=== PATIENT | male | born 1965 | race Caucasian/White ===

== ENCOUNTER 2020-07-06 16:03 | Inpatient (IN) | payer BC ==
[2020-07-06] MEDS ORDERED: SODIUM CHLORIDE 0.9% 1,000 ML IV ONE (17:00)
[2020-07-06] MEDS ORDERED: VERAPAMIL 2.5 MG/ML 2 ML AMP ONE (17:13)
[2020-07-06] MEDS ORDERED: MIDAZOLAM 2 MG/2 ML VIAL IV ONE (17:17)
[2020-07-06] MEDS ORDERED: LIDOCAINE 1% INJ 10MG/ML (20 ML MDV) SQ ONE (17:19)
[2020-07-06] MEDS ORDERED: VERAPAMIL SYRINGE (5 MG/10 ML) INTRAARTER ONE (17:21)
[2020-07-06] MEDS ORDERED: BIVALIRUDIN BOLUS 250 MG/50 ML IV ONE (17:30)
[2020-07-06] MEDS ORDERED: BIVALIRUDIN 250 MG in SODIUM CHLORIDE 0.9% 50 ML IV ONE (17:31)
[2020-07-06] MEDS ORDERED: HYDROmorphone 1 MG/ML 1 ML SYRINGE ONE (17:32)
[2020-07-06] MEDS ORDERED: niCARdipine 25 MG/10 ML VIAL ONE (17:33)
[2020-07-06] MEDS ORDERED: HYDROmorphone 1 MG/ML 1 ML SYRINGE IVP ONE (17:35)
[2020-07-06] MEDS: NITROGLYCERIN 1000MCG/10ML SYRINGE INTRACORON ONE ×2 (17:38→17:44)
[2020-07-06] MEDS ORDERED: PRASUGREL 10 MG TAB ONE ×2 (17:41)
[2020-07-06] MEDS ORDERED: PRASUGREL 10 MG TAB PO ONE (17:44)
[2020-07-06] MEDS ORDERED: IOPAMIDOL-370 125ML BTL INJ ONE (17:46)
[2020-07-06] MEDS ORDERED: RX INFO: IV CONTRAST WAS GIVEN 1 EACH MISC MISCELLANE PRN (17:57)
[2020-07-06] MEDS ORDERED: MAG HYDROX/AL HYDROX/SIMETH 30 ML CUP PO PRN (17:57)
[2020-07-06] MEDS ORDERED: ATROPINE SULFATE 0.1 MG/ML 10ML SYRINGE IV PRN (17:57)
[2020-07-06] MEDS ORDERED: NITROGLYCERIN SL TABS 0.4 MG TAB SUBLINGUAL PRN (17:57)
[2020-07-06] MEDS ORDERED: ZOLPIDEM 5 MG TAB PO PRN (17:57)
[2020-07-06] MEDS ORDERED: SODIUM CHLORIDE 0.9% 1,000 ML IV SCH (18:00)
--- NOTE | 2020-07-06 18:01 | P.CRDCN ---
History of Present Illness Consult date: 07/06/20 Chief complaint: Chest pain History of present illness: This is a very pleasant 55-year-old gentleman was no significant past medical history of diabetes or hypertension or dyslipidemia presented to the emergency department at [facility] complaining of chest discomfort. The patient has been experiencing intermittent episodes of chest pressure/chest discomfort for the last 3 days. He described it as somebody sitting on the chest. No radiation to the arms or neck or shoulders. No associated symptoms of shortness of breath or sweating or dizziness or syncope. Initial troponin came in to be slightly abnormal but the subsequent troponin came in to be worse. The EKG showed sinus rhythm with ST changes in the anteroseptal leads concerning for severe underlying coronary artery disease. Because of that an emergent heart catheterization was advised. The patient underwent today an emergent heart catheterization that revealed critical disease involving the proximal LAD with a lesion appeared to be in the range of 99.9% and seems to be hazy looking with a thrombus components. He underwent successful stenting of the LAD using a drug- eluting stent with an excellent angiographic results and without any elevation the procedure was performed from the right radial approach. The patient is going to be admitted to the selective units. He will be on dual antiplatelet therapy along with high density statin along with anti-ischemic medications. An echocardiogram would be obtained to obtain a baseline left ventricular systolic function. Past Medical History Past Medical History: GERD/Reflux, Osteoarthritis (OA) Additional Past Medical History / Comment(s): VARICOSE VEINS,IRREGULAR HEART BEAT,IMPLANTS LEFT KNEE, CADAVER TENDON X3, NUMBNESS AND TINGLING RT. ARM History of Any Multi-Drug Resistant Organisms: None Reported Past Surgical History: Orthopedic Surgery, Tonsillectomy Additional Past Surgical History / Comment(s): CYST REMOVED FROM CHEST-FATTY TUMOR REMOVED FROM BACK, PLASTIC SURG. FOR ORBITAL DAMAGE, SCARRED ESOPHAGUS, COLONSCOPY,EGD 9 KNEE SURGERIES, LEFT ACHILLES, Past Anesthesia/Blood Transfusion Reactions: No Reported Reaction Additional Past Anesthesia/Blood Transfusion Reaction / Comment(s): WAKES UP IN THE MIDDLE IN PAST Past Psychological History: No Psychological Hx Reported Past Alcohol Use History: Rare Past Drug Use History: None Reported Medications and Allergies Home Medications Medication Instructions Recorded Confirmed Type Celecoxib [CeleBREX] 200 mg PO DAILY 04/04/14 06/27/14 History Esomeprazole Magnesium [NexIUM] 40 mg PO DAILY 04/04/14 06/27/14 History HYDROcodone/APAP 10-325MG [[place] 1 tab PO QID PRN 04/04/14 06/27/14 History 10-325] carisoprodoL [Soma] 350 mg PO DAILY PRN 04/04/14 06/27/14 History Allergies Allergy/AdvReac Type Severity Reaction Status Date / Time No Known Allergies Allergy Verified 06/27/14 14:31 Physical Exam Vitals: Intake and Output 07/06/20 07/06/20 07/06/20 06:59 14:59 22:59 Intake Total 275 Balance 275 Intake: IV 275 Other: Weight 96.3 kg - Constitutional General appearance: no acute distress - Respiratory Respiratory: bilateral: CTA - Cardiovascular Rhythm: regular Heart sounds: normal: S1, S2 Abnormal Heart Sounds: systolic murmur Results Intake and Output 07/06/20 07/06/20 07/06/20 06:59 14:59 22:59 Intake Total 275 Balance 275 Intake: IV 275 Other: Weight 96.3 kg Patient Weight 07/07/20 06:59 Weight 96.3 kg Assessment and Plan Assessment: Assessment #1 acute coronary event #2 status post PCI of the LAD Plan #1 dual antiplatelet therapy along with high-intensity statin #2 an echocardiogram to establish LV function #3 fasting lipid profile #4 anti-ischemic medication #5 follow-up with the patient
[2020-07-06 19:32] VITALS: RESP 18
[2020-07-06] MEDS: METOPROLOL TARTRATE 12.5 MG TAB PO SCH (19:38)
--- NOTE | 2020-07-06 20:44 | CC ---
CARDIAC CATHETERIZATION REPORT DATE OF SERVICE: 07/06/2020 PERFORMING PHYSICIAN: Ervin Deras M.D. PROCEDURE PERFORMED: 1. Selective right and left coronary angiogram. 2. Left heart catheterization. 3. Successful stenting of the proximal left anterior descending artery using a 3.5 x 12 mm Xience ZAHRAA with an excellent angiographic result and reduction of stenosis from 99% to 0% and without any complication. INDICATION: This is a 55-year-old gentleman with no significant past medical history who presented to the emergency department at [facility] with chest discomfort. He was found to have mildly abnormal troponin and also EKG concerning for severe underlying coronary artery disease. Because of that a heart catheterization was advised. APPROACH: Right radial artery. COMPLICATIONS: None. LEVEL OF SEDATION: Moderate, with sedation length of 30 minutes. PROCEDURE DESCRIPTION: After obtaining informed consent, the patient was brought to the cardiac blood bank laboratory technologist. The right radial artery was cannulated using micropuncture technique. The micropuncture wire passed easily. Then I placed a 6-Comoran sheath at the right radial artery. At that point I gave the patient 2 mg of verapamil IA. Selective right and left coronary angiogram was performed using JR4 and JL3.5 catheters. Left heart catheterization was performed using the JR4 catheter, which crossed the aortic valve. Then I did pull back across the valve. After that I did intervene on the LAD. Please see separate paragraph for that. SELECTIVE CORONARY ANGIOGRAM: 1. The RCA is a large-caliber vessel and is a dominant vessel. The RCA has mild disease only. It distally bifurcates into PDA and PLV branches. Both appeared to have mild disease only. 2. The left main is angiographically normal. It furcates into LCX and ramus intermedius and left anterior descending artery. 3. The left circumflex is a large-caliber vessel. It is a codominant vessel. The LCX is angiographically normal. 4. The ramus intermedius is a large-caliber vessel and seems to be also angiographically normal. 5. The LAD. The proximal LAD just proximal to the bifurcation of the large diagonal branch has a lesion that appeared to be in the range of 99.9%. The LAD in the mid and distal portions appeared to be angiographically normal. 6. HEMODYNAMICS: The LVEDP was 10 to 12 mmHg without significant gradient across the aortic valve. PERCUTANEOUS CORONARY INTERVENTION OF THE LEFT ANTERIOR DESCENDING CORONARY ARTERY: Anticoagulation was initiated using Angiomax. Subsequently I did engage the left main using a JL3 guide. I did wire the LAD using a run-through wire. Initially I tried to wire the LAD using a Whisper wire, but the wire was going to the diagonal, so I left the wire there. I did direct stenting of the lesion using a 3.5 x 12 mm Xience drug- eluting stent where the stent was positioned under fluoroscopic guidance and deployed under fluoroscopic guidance under 12 atmospheres for 20 seconds. The following angiogram showed excellent angiographic results and the procedure was completed without any complication. CONCLUSION: 1. Acute [id number] myocardial infarction in this 55-year-old gentleman with no prior cardiac history. 2. Critical disease involving the proximal left anterior descending artery. 3. Successful stenting of the proximal LAD using a 3.5 x 12 mm Xience ZAHRAA with an excellent angiographic result and without any complication. POST-PROCEDURE MANAGEMENT: 1. Dual anti-platelet therapy. 2. Risk factor modifications. 3. Echocardiogram with Doppler. 4. Follow up with the patient. MMODL / IJN: [id number] /
[2020-07-06] MEDS ORDERED: ATORVASTATIN 80 MG TAB PO SCH (21:00)
[2020-07-06] MEDS ORDERED: ALPRAZolam 0.5 MG TAB PO SCH (21:00)
--- NOTE | 2020-07-06 23:14 | LTR ---
July 06, 2020 To: Dr. Mancera Re: Oliver Mayo (67) Dear Dr. Mancera, Mr. Oliver Mayo underwent heart catheterization that revealed critical disease involving the proximal left anterior descending artery. He underwent successful stenting of the LAD with a drug-eluting stent, with excellent angiographic results. Thank you for allowing us to participate in his care. Please do not hesitate to call with any question or concern. Sincerely, Ervin Deras M.D. SALVADOR / EMERY: [id number] /
[2020-07-07 07:12] LABS: Basophils % (A) 1 %; Eosinophils # (A) 0.1 k/uL (0-0.7); Eosinophils % (A) 1 %; HCT 53.4 % (39.0-53.0); HGB 17.7 gm/dL (13.0-17.5); Lymphocytes # (A) 0.9 k/uL (1.0-4.8); Lymphocytes % (A) 13 %; MCH 31.1 pg (25.0-35.0); MCHC 33.1 g/dL (31.0-37.0); Mean Platelet Volume 8.1; Monocytes # (A) 0.6 k/uL (0-1.0); Monocytes % (A) 8 %; Neutrophils # (A) 5.1 k/uL (1.3-7.7); Neutrophils % (A) 74 %; Platelet Count 194 k/uL (150-450); RBC 5.68 m/uL (4.30-5.90); RDW 12.2 % (11.5-15.5); WBC 6.9 k/uL (3.8-10.6)
[2020-07-07 07:16] LABS: African American GFR (CKD) >90 (>60 ml/min/1.73 sqM); Anion Gap 5 mmol/L; Blood Urea Nitrogen 11 mg/dL (9-20); Calcium 9.1 mg/dL (8.4-10.2); Carbon Dioxide 27 mmol/L (22-30); Chloride 106 mmol/L (98-107); Cholesterol 144 mg/dL (<200); Glucose 80 mg/dL (74-99); HDL Cholesterol 26 mg/dL (40-60); LDL Cholesterol,Calculated 101 mg/dL (0-99); Magnesium 1.8 mg/dL (1.6-2.3); Non-African American GFR(CKD) 81 (>60 ml/min/1.73 sqM); Potassium 4.6 mmol/L (3.5-5.1); Sodium 138 mmol/L (137-145); Triglycerides 85 mg/dL (<150)
[2020-07-07] MEDS ORDERED: ASPIRIN 81 MG PO SCH (09:00)
[2020-07-07] MEDS ORDERED: ASPIRIN 325 MG TAB PO SCH (09:00)
[2020-07-07] MEDS: METOPROLOL TARTRATE 12.5 MG TAB PO SCH (09:44)
--- NOTE | 2020-07-07 10:46 | P.PN ---
Subjective Progress Note Date: 07/07/20 CHIEF COMPLAINT: Chest pain HISTORY OF PRESENT ILLNESS: 55-year-old male who is status post cardiac catheterization with drug eluting stent placement to the LAD with Dr. Deras. Patient examined this morning at the bedside. Patient reports having an episode of chest pain after his cardiac cath that resolved spontaneously. He currently denies chest pain. He denies shortness of breath. Vital signs stable. He is anxious to be discharged home today. PHYSICAL EXAM: VITAL SIGNS: Reviewed. GENERAL: Well-developed in no acute distress. NECK: Supple. No JVD or thyromegaly LUNGS: Respirations even and unlabored. Lungs essentially clear to auscultation bilaterally. HEART: Regular rate and rhythm. S1 and S2 heard. Systolic murmur. EXTREMITIES: Normal range of motion. No clubbing or cyanosis. Peripheral pulses intact. No lower extremity edema. Right radial site clean and dry. Pulses present. ASSESSMENT: 1. Acute coronary event, status post stenting to the LAD PLAN: -Decrease aspirin to 81 mg daily -Continue additional current cardiac medications including Lipitor, lisinopril, Lopressor, and Effient -Echocardiogram ordered to assess baseline LV function. Await results -Anticipate discharge home this evening or tomorrow Nurse practitioner note has been reviewed by physician. Signing provider agrees with the documented findings, assessment, and plan of care. Objective - Vital Signs Vital signs: Vital Signs Temp 98.5 F 07/07/20 04:00 Pulse 70 07/07/20 04:00 Resp 18 07/07/20 04:00 BP 115/72 07/07/20 04:00 Pulse Ox 96 07/07/20 04:00 Intake & Output 07/06/20 07/07/20 07/07/20 18:59 06:59 18:59 Intake Total 325 Balance 325 Weight 96.3 kg 98.3 kg Intake: IV 275 Intake, IV Titration 50 Amount Sodium Chloride 0.9% 1, 50 000 ml @ 0 mls/hr IV [email or web address] ONE Rx#:[id number] Other: Voiding Method Toilet # Voids 2 - Labs CBC & Chem 7: 07/07/20 06:11 07/07/20 06:11 Labs: Abnormal Lab Results - Last 24 Hours (Table) 07/07/20 07/07/20 Range/Units 06:11 06:11 Hgb 17.7 H (13.0-17.5) gm/dL Hct 53.4 H (39.0-53.0) % Lymphocytes # 0.9 L (1.0-4.8) k/uL LDL Cholesterol, Calc 101 H (0-99) mg/dL HDL Cholesterol 26 L (40-60) mg/dL
[2020-07-07 11:09] VITALS: BMI 30.2
[2020-07-07 11:44] VITALS: TEMP 98.7
--- NOTE | 2020-07-07 11:49 | P.HPIM ---
History of Present Illness H&P Date: 07/07/20 Chief Complaint: Chest pain HISTORY AND PHYSICAL AND DISCHARGE SUMMARY: HISTORY OF PRESENT ILLNESS This is a 55-year-old male patient of Dr. Mancera with past medical history of gastroesophageal reflux disease, heavy caffeine use, testosterone use, polycythemia. Patient presented to [facility] with chest pain that was a pressure type discomfort for about 3 days and described it as somebody sitting on his chest. There was no radiation. No shortness of breath, sweating, lightheadedness, dizziness, syncope. Initial troponin came back abnormal and subsequent or higher. EKG was a sinus rhythm with ST changes in the anterior septal leads concerning for severe underlying coronary artery disease. Echocardiogram revealed no abnormality and wall motion and normal EF, no pericardial effusion. CT of the chest showed no pulmonary embolism. He was diagnosed with non-ST elevated myocardial infarction and underwent emergent heart catheterization that revealed critical disease involving the proximal LAD with a lesion of 99.9%. He was transferred to [facility] for urgent stenting of the LAD. He is now on the cardiac stepdown unit. Patient has been started on aspirin, statin, lisinopril, Lopressor and Effient. Lab work this morning reveals WBC 6.9, hemoglobin 17.7, platelet count 194. Daphnie ctrolytes and renal function within normal limits. Magnesium 1.8. Triglycerides 85, cholesterol 144, LDL 101, HDL 26. Echocardiogram reveals EF of 45-50% with mild concentric left ventricular hypertrophy, mild mitral regurgitation, mild tricuspid regurgitation. Patient has been seen by cardiolog y and cleared for discharge. Patient denies having any chest pain, shortness of breath, lightheadedness or dizziness. REVIEW OF SYSTEMS At time of evaluation Constitutional: No fever, no chills, no night sweats. No weight change. No weakness, fatigue or lethargy. No daytime sleepiness. EENT: No headache. No blurred vision or double vision, no loss of vision. No loss of Hearing, no ringing in the ears, no dizziness. No nasal drainage or congestion. No epistaxis. No sore throat. Lungs: No shortness of breath, cough, no sputum production. No wheezing. Cardiovascular: No chest pain, no lower extremity edema. No palpitations. No paroxysmal nocturnal dyspnea. No orthopnea. No lightheadedness or dizziness. No syncopal episodes. Abdominal: No abdominal pain. No nausea, vomiting. No diarrhea. No constipation. No bloody or tarry stools.. No loss of appetite. Genitourinary: No dysuria, increased frequency, urgency. No urinary retention. Musculoskeletal: No myalgias. No muscle weakness, no gait dysfunction, no frequent falls. No back pain. No neck pain. Integumentary: No wounds, no lesions. No rash or pruritus. No unusual bruising. No change in hair or nails. Neurologic: No aphasia. No facial droop. No change in mentation. No head injury. No headache. No paralysis. No paresthesia. Psychiatric: No depression. No anxiety. No mood swings. Endocrine: No abnormal blood sugars. No weight change. No excessive sweating or thirst. No cold intolerance. SOCIAL HISTORY Patient is a nonsmoker and rarely drinks alcohol. He is and lives at home with his . FAMILY HISTORY Mother is alive at age 77 with history of morbid obesity and father is alive at the same age as well as morbid obesity. Reyez share medical problems. Patient has one brother with hypertension and other medical problems. He does not have any sisters. He has living children with no major medical problems. PHYSICAL EXAMINATION Gen: This is a 55-year-old male patient resting in bed and appears to be comfortable and in no acute distress. HEENT: Head is atraumatic, normocephalic. Pupils equal, round. Sclerae is anicteric. NECK: Supple. No JVD. No lymphadenopathy. No thyromegaly. LUNGS: Clear to auscultation. No wheezes or rhonchi. No intercostal retractions. HEART: Regular rate and rhythm. Systolic murmur. ABDOMEN: Soft. Bowel sounds are present. No masses. No tenderness. EXTREMITIES: No pedal edema. No calf tenderness. NEUROLOGICAL: Patient is awake, alert and oriented x3. Cranial nerves 2 through 12 are grossly intact. ASSESSMENT AND PLAN 1. Non-ST elevated myocardial infarction status post PCI of the LAD. Continue aspirin, Lipitor, lisinopril, Lopressor and Effient. Cardiology consult appreciated. 2. Insomnia. 3. Polycythemia. 4. Dyslipidemia. Patient will be admitted to the hospital for a minimum of 2 night stay. Discharge plan: home Discharge Medication List Esomeprazole Magnesium [NexIUM] 40 mg PO DAILY 04/04/14 [History] ALPRAZolam [Xanax] 1.5 mg PO HS 07/06/20 [History] Multivitamins, Thera [Multivitamin (formulary)] 1 tab PO DAILY 07/06/20 [History] Testosterone Cypionate [Depo-Testosterone] 200 mg IM Q28D 07/06/20 [History] Zinc 50 mg PO DAILY 07/06/20 [History] oxyCODONE-APAP 10-325MG [Percocet 10-325 mg] 1 tab PO TID PRN 07/06/20 [History] tadalafiL [Tadalafil] 20 mg PO DAILY PRN 07/06/20 [History] Aspirin 81 mg PO DAILY #30 chew 07/07/20 [Rx] Atorvastatin [Lipitor] 80 mg PO HS #30 tab 07/07/20 [Rx] Metoprolol Tartrate [Lopressor] 12.5 mg PO BID #60 tab 07/07/20 [Rx] Nitroglycerin Sl Tabs [Nitrostat] 0.4 mg SUBLINGUAL Q5M PRN #30 tab 07/07/20 [Rx ] Prasugrel [Effient] 10 mg PO DAILY #30 tab 07/07/20 [Rx] lisinopriL [Zestril] 2.5 mg PO DAILY #30 tab 07/07/20 [Rx] Impression and plan of care have been directed as dictated by the signing physician. Christelle Cabello nurse practitioner acting as scribe for signing physician. Past Medical History Past Medical History: GERD/Reflux, Osteoarthritis (OA) Additional Past Medical History / Comment(s): VARICOSE VEINS,IRREGULAR HEART BEAT,IMPLANTS LEFT KNEE, CADAVER TENDON X3, NUMBNESS AND TINGLING RT. ARM History of Any Multi-Drug Resistant Organisms: None Reported Past Surgical History: Orthopedic Surgery, Tonsillectomy Additional Past Surgical History / Comment(s): CYST REMOVED FROM CHEST-FATTY TUMOR REMOVED FROM BACK, PLASTIC SURG. FOR ORBITAL DAMAGE, SCARRED ESOPHAGUS, COLONSCOPY,EGD 9 KNEE SURGERIES, LEFT ACHILLES, Past Anesthesia/Blood Transfusion Reactions: No Reported Reaction Additional Past Anesthesia/Blood Transfusion Reaction / Comment(s): WAKES UP IN THE MIDDLE IN PAST Past Psychological History: No Psychological Hx Reported Past Alcohol Use History: Rare Past Drug Use History: None Reported - Past Family History Father Family Medical History: Hyperlipidemia, Hypertension, Rheumatoid Arthritis (RA) Mother Family Medical History: Eye Disorder, Hypertension, Rheumatoid Arthritis (RA) Medications and Allergies Home Medications Medication Instructions Recorded Confirmed Type Esomeprazole Magnesium [NexIUM] 40 mg PO DAILY 04/04/14 07/06/20 History ALPRAZolam [Xanax] 1.5 mg PO HS 07/06/20 07/06/20 History Multivitamins, Thera [Multivitamin 1 tab PO DAILY 07/06/20 07/06/20 History (formulary)] Testosterone Cypionate 200 mg IM Q28D 07/06/20 07/06/20 History [Depo-Testosterone] Zinc 50 mg PO DAILY 07/06/20 07/06/20 History oxyCODONE-APAP 10-325MG [Percocet 1 tab PO TID PRN 07/06/20 07/06/20 History 10-325 mg] tadalafiL [Tadalafil] 20 mg PO DAILY PRN 07/06/20 07/06/20 History Aspirin 81 mg PO DAILY #30 chew 07/07/20 Rx Atorvastatin [Lipitor] 80 mg PO HS #30 tab 07/07/20 Rx Metoprolol Tartrate [Lopressor] 12.5 mg PO BID #60 tab 07/07/20 Rx Nitroglycerin Sl Tabs [Nitrostat] 0.4 mg SUBLINGUAL Q5M PRN #30 tab 07/07/20 Rx Prasugrel [Effient] 10 mg PO DAILY #30 tab 07/07/20 Rx lisinopriL [Zestril] 2.5 mg PO DAILY #30 tab 07/07/20 Rx Allergies Allergy/AdvReac Type Severity Reaction Status Date / Time No Known Allergies Allergy Verified 07/06/20 19:18 Physical Exam Vitals: Vital Signs Temp Pulse Pulse Resp BP Pulse Ox 07/07/20 04:00 98.5 F 70 70 18 115/72 96 07/06/20 23:22 84 84 18 114/79 99 07/06/20 21:42 76 18 107/72 94 L 07/06/20 20:42 75 18 114/73 94 L 07/06/20 20:00 79 18 07/06/20 19:42 80 18 113/74 97 07/06/20 19:12 98.8 F 79 18 117/78 98 07/06/20 18:42 77 100/62 98 07/06/20 18:27 73 101/66 97 07/06/20 18:12 71 103/70 98 07/06/20 18:00 73 Intake and Output 07/06/20 07/07/20 07/07/20 22:59 06:59 14:59 Intake Total 325 Balance 325 Intake: IV 275 Intake, IV Titration 50 Amount Sodium Chloride 0.9% 1, 50 000 ml @ 0 mls/hr IV .[email or web address] ONE Rx#:[id number] Other: Voiding Method Toilet Toilet # Voids 2 Weight 96.3 kg 98.3 kg Results CBC & Chem 7: 07/07/20 06:11 07/07/20 06:11 Labs: Abnormal Lab Results - Last 24 Hours (Table) 07/07/20 07/07/20 Range/Units 06:11 06:11 Hgb 17.7 H (13.0-17.5) gm/dL Hct 53.4 H (39.0-53.0) % Lymphocytes # 0.9 L (1.0-4.8) k/uL LDL Cholesterol, Calc 101 H (0-99) mg/dL HDL Cholesterol 26 L (40-60) mg/dL Thrombosis Risk Factor Assmnt - Choose All That Apply Each Factor Represents 1 point: Age 41-60 years, Varicose veins Thrombosis Risk Factor Assessment Total Risk Factor Score: 2 Thrombosis Risk Factor Assessment Level: Low Risk
--- NOTE | 2020-07-07 12:57 | ECHOF ---
Referral Reason:ACS MEASUREMENTS -------- HEIGHT: 157.5 cm WEIGHT: 98.0 kg BP: RVIDd: 3.3 cm (< 3.3) IVSd: 1.2 cm (0.6 - 1.1) LVIDd: 5.1 cm (3.9 - 5.3) LVPWd: 1.4 cm (0.6 - 1.1) IVSs: 1.4 cm LVIDs: 3.7 cm LVPWs: 1.9 cm LA Diam: 3.9 cm (2.7 - 3.8) LAESV Index (A-L): 28.43 ml/m Ao Diam: 3.6 cm (2.0 - 3.7) AV Cusp: 2.0 cm (1.5 - 2.6) MV EXCURSION: 25.445 mm (> 18.000) MV EF SLOPE: 104 mm/s (70 - 150) EPSS: 0.8 cm MV E Jm: 0.48 m/s MV DecT: 238 ms MV A Jm: 0.56 m/s MV E/A Ratio: 0.86 RAP: 5.00 mmHg RVSP: 14.73 mmHg FINDINGS -------- Sinus rhythm. This was a technically good study. The left ventricular size is normal. There is mild concentric left ventricular hypertrophy. There is mild global hypokinesis of LV . Overall left ventricular systolic function is mildly impaired w ith, an EF between 45 - 50 %. The right ventricle is normal in size. The left atrial size is normal. Normal LA size by volume 22+/-6 ml/m2. The right atrial size is normal. The aortic valve is trileaflet, and appears structurally normal. No aortic stenosis or regurgitation. Mild mitral regurgitation is present. Mild tricuspid regurgitation present. Right ventricular systolic pressure is normal at < 35 mmHg. There is no pulmonic regurgitation present. The aortic root size is normal. There is no pericardial effusion. CONCLUSIONS -------- 1. The left ventricular size is normal. 2. There is mild concentric left ventricular hypertrophy. 3. There is mild global hypokinesis of LV . 4. Overall left ventricular systolic function is mildly impaired with, an EF between 45 - 50 %. 5. The right ventricle is normal in size. 6. The left atrial size is normal. 7. Normal LA size by volume 22+/-6 ml/m2. 8. The right atrial size is normal. 9. Mild mitral regurgitation is present. 10. Mild tricuspid regurgitation present. GRAIN I FARMWORKER: Traci Kennedy RDCS
[2020-07-07 15:06] VITALS: BP 127/72; PULSE 84
[2020-07-07] MEDS ORDERED: PRASUGREL 10 MG TAB PO SCH (17:57)
== END 2020-07-07 14:00 | disposition home or self-care (01) | DRG 247 ==
LOC: 3SCARD 16:12
PROVIDERS: ADMIT Internal Medicine Geriatric Medicine; ATTEND Internal Medicine Geriatric Medicine
PROC: 4A023N7 Measurement of Cardiac Sampling and Pressure, Left Heart, Percutaneous Approach (ICD-10-PCS; principal; 2020-07-06 16:30)
PROC: B2111ZZ Fluoroscopy of Multiple Coronary Arteries using Low Osmolar Contrast (ICD-10-PCS; principal; 2020-07-06 16:30)
PROC: 027034Z Dilation of Coronary Artery, One Artery with Drug-eluting Intraluminal Device, Percutaneous Approach (ICD-10-PCS; principal; 2020-07-06 16:30)
DX: I21.4 Non-ST elevation (NSTEMI) myocardial infarction (principal); D75.1 Secondary polycythemia; E78.5 Hyperlipidemia, unspecified; G47.00 Insomnia, unspecified; I08.1 Rheumatic disorders of both mitral and tricuspid valves; Z82.49 Family history of ischemic heart disease and other diseases of the circulatory system; Z82.61 Family history of arthritis; Z83.518 Family history of other specified eye disorder; I83.90 Asymptomatic varicose veins of unspecified lower extremity; Z79.02 Long term (current) use of antithrombotics/antiplatelets; Z79.1 Long term (current) use of non-steroidal anti-inflammatories (NSAID); Z79.82 Long term (current) use of aspirin; Z79.899 Other long term (current) drug therapy; Z90.89 Acquired absence of other organs
CPT/HCPCS: 80048; 80061; 83735; 85025; 93306; 93458